=== PATIENT | female | born 1965 | race Caucasian/White ===

== ENCOUNTER 2018-07-17 17:11 | Inpatient (IN) | payer OTHER ==
[~2018-07-17] VITALS: Ht 165.1 cm; Wt 135.6 kg
[2018-07-17 17:11] VITALS: BP_SYST 136
[2018-07-17] MEDS ORDERED: ASPIRIN 81 MG TAB.CHEW PO ONE (17:45)
[2018-07-17 18:03] LABS: BASOPHILS # (AUTO) 0.1 K/uL (0.0-0.2); BASOPHILS % (AUTO) 0.9 % (0.0-2.0); EOSINOPHILS # (AUTO) 0.3 K/uL (0.0-0.4); HEMATOCRIT 42.6 % (36-48); HEMOGLOBIN 14.6 g/dL (12.0-16.0); LYMPHOCYTES # (AUTO) 3.6 K/uL (1.0-5.5); MEAN CORPUSCULAR HEMOGLOBIN 30 pg (27-31); MEAN CORPUSCULAR HGB CONC 34 % (32-36); MEAN CORPUSCULAR VOLUME 87 fL (79.0-98.0); MONOCYTES # (AUTO) 0.9 K/uL (0.0-1.0); MONOCYTES % (AUTO) 7.5 % (1.7-9.3); NEUTROPHILS # (AUTO) 6.5 K/uL (1.8-7.7); NEUTROPHILS % (AUTO) 56.6 % (40.0-70.0); PLATELET COUNT (AUTO) 252 K/uL (130-430); RED BLOOD CELL COUNT(AUTO) 4.87 MIL/uL (4.2-6.2); WHITE BLOOD COUNT (AUTO) 11.4 K/uL (4.8-10.8)
[2018-07-17 18:23] LABS: PROTHROMBIN TIME 9.9 SECS (9.5-12.5)
[2018-07-17 18:43] LABS: CALCIUM 9.4 mg/dL (8.4-11.0); CREATININE 0.76 mg/dL (0.55-1.30); POTASSIUM 3.2 mmol/L (3.5-5.1)
[2018-07-17 18:48] LABS: ALBUMIN 3.5 g/dL (3.4-4.8); TOTAL BILIRUBIN 0.3 mg/dL (0.0-1.0)
[2018-07-17] MEDS ORDERED: SIMV40TA2 PO (19:25)
[2018-07-17] MEDS ORDERED: BENA10TA2 PO (19:25)
[2018-07-17] MEDS ORDERED: GLU850 PO (19:25)
[2018-07-17] MEDS ORDERED: triamterene PO (19:25)
[2018-07-17 19:38] VITALS: BP_SYST 121
[2018-07-17 20:00] VITALS: BP_SYST 134
[2018-07-17] MEDS ORDERED: NITROGLYCERIN 0.4 MG TAB.SUBL SL PRN (21:30)
[2018-07-17] MEDS ORDERED: POTASSIUM CHLORIDE 20 MEQ TAB.PRT.SR PO SCH (22:00)
[2018-07-18 00:48] VITALS: BP_SYST 131
[2018-07-18 08:04] VITALS: BP_SYST 130
[2018-07-18 08:24] LABS: CALCIUM 9.4 mg/dL (8.4-11.0); CREATININE 0.65 mg/dL (0.55-1.30); POTASSIUM 4.3 mmol/L (3.5-5.1)
[2018-07-18 08:25] LABS: HEMATOCRIT 42.9 % (36-48); WHITE BLOOD COUNT (AUTO) 11.6 K/uL (4.8-10.8)
[2018-07-18 08:27] LABS: BASOPHILS # (AUTO) 0.2 K/uL (0.0-0.2); BASOPHILS % (AUTO) 1.9 % (0.0-2.0); EOSINOPHILS # (AUTO) 0.4 K/uL (0.0-0.4); EOSINOPHILS % (AUTO) 3.2 % (0.0-4.0); LYMPHOCYTES # (AUTO) 4.1 K/uL (1.0-5.5); LYMPHOCYTES % (AUTO) 35.1 % (20.5-51.5); MEAN CORPUSCULAR HEMOGLOBIN 31 pg (27-31); MEAN CORPUSCULAR HGB CONC 35 % (32-36); MEAN CORPUSCULAR VOLUME 88 fL (79.0-98.0); MONOCYTES # (AUTO) 0.9 K/uL (0.0-1.0); MONOCYTES % (AUTO) 7.8 % (1.7-9.3); PLATELET COUNT (AUTO) 228 K/uL (130-430); RED BLOOD CELL COUNT(AUTO) 4.85 MIL/uL (4.2-6.2); RED CELL DISTRIBUTION WIDTH 12.1 % (9.0-15.0)
[2018-07-18] MEDS: ASPIRIN 81 MG TAB.CHEW PO SCH (08:37)
[2018-07-18] MEDS: BENAZEPRIL HCL 10 MG TABLET (LOTENSIN) PO SCH (08:38)
[2018-07-18] MEDS: INSULIN REGULAR, HUMAN 100 UNITS/ML, 10 ML VIAL (novoLIN R) SUBCUT PRN ×3 (11:26→20:20)
[2018-07-18 12:00] VITALS: BP_SYST 109
[2018-07-18 16:00] VITALS: BP_SYST 112
[2018-07-18 20:00] VITALS: BP_SYST 127
[2018-07-18] MEDS ORDERED: ENOXAPARIN SODIUM 40 MG/0.4 ML SYRINGE SUBCUT SCH (21:00)
[2018-07-18] MEDS ORDERED: SIMVASTATIN 40 MG TABLET PO SCH (21:00)
[2018-07-19 05:20] VITALS: BP_SYST 112
[2018-07-19 08:04] VITALS: BP_SYST 101
[2018-07-19] MEDS: BENAZEPRIL HCL 10 MG TABLET (LOTENSIN) PO SCH (08:19)
[2018-07-19] MEDS: ASPIRIN 81 MG TAB.CHEW PO SCH (08:19)
[2018-07-19 09:52] VITALS: BP_SYST 101
[2018-07-19 11:07] VITALS: BP_SYST 132
== END 2018-07-19 12:40 | disposition home or self-care (01) | DRG 206 ==
LOC: SED 17:11 → STU 19:19
PROVIDERS: ADMIT Family Medicine; ATTEND Family Medicine
DX: M94.0 Chondrocostal junction syndrome [Tietze] (principal); E87.1 Hypo-osmolality and hyponatremia; Z68.42 Body mass index [BMI] 45.0-49.9, adult; R07.89 Other chest pain; I10 Essential (primary) hypertension; E78.5 Hyperlipidemia, unspecified; E11.9 Type 2 diabetes mellitus without complications; E66.01 Morbid (severe) obesity due to excess calories; F17.210 Nicotine dependence, cigarettes, uncomplicated; F41.9 Anxiety disorder, unspecified; J45.909 Unspecified asthma, uncomplicated; Z82.49 Family history of ischemic heart disease and other diseases of the circulatory system; Z83.3 Family history of diabetes mellitus; Z90.49 Acquired absence of other specified parts of digestive tract; Z91.018 Allergy to other foods; Z88.8 Allergy status to other drugs, medicaments and biological substances; Z79.899 Other long term (current) drug therapy; Z79.84 Long term (current) use of oral hypoglycemic drugs; Z84.89 Family history of other specified conditions
CPT/HCPCS: 36415; 71045; 80048; 80053; 80061; 82550-TC; 82962; 84484; 85025; 85610-TC; 85730-TC; 93005; 93306; 99285; J1650; J1815

== ENCOUNTER 2018-10-12 15:07 | Emergency (ER) | payer OTHER ==
[~2018-10-12] VITALS: Ht 165.1 cm; Wt 136.1 kg
[~2018-10-12 15:07] MED LIST: BENA10TA2 PO; GLU850 PO; SIMV40TA2 PO; triamterene PO
[2018-10-12 15:20] VITALS: BP_SYST 139
--- NOTE | 2018-10-12 16:09 | NUR ---
PATIENT SITTING UP ON BED. A&Ox4. RESPIRATIONS EVEN AND UNLABORED. NO SOB. NO CHEST PAIN. PT WITH C/O RIGHT ANKLE INJURY ON SUNDAY AND RIGHT SHOULDER PAIN SINCE SUNDAY. PER PT, SHE TRIPPED, FELL, AND LANDED ON HER RIGHT SIDE. DENIES OF ANY HEAD TRAUMA. RIGHT ANKLE NOTED WITH SWELLING AND PAIN = 6/10. ICE PACKS APPLIED TO THE RIGHT ANKLE FOR PAIN AND TOLERATING WELL. RIGHT LOWER EXTREMITY ELEVATED. RIGHT SHOULDER NOTED WITH GOOD ROM. NO DEFORMITY OBSERVED. PT IN GOOD CONDITION. PT ON CELL PHONE. NO ACUTE DISTRESS.
--- NOTE | 2018-10-12 16:12 | NUR ---
DR. DAN AT BEDSIDE AND EXAMINING PATIENT.
[2018-10-12] MEDS ORDERED: IBUPROFEN 800 MG TABLET PO ONE (16:30)
--- NOTE | 2018-10-12 16:35 | NUR ---
PATIENT OFFERED CRUTCHES BY DR. DAN BUT PATIENT REFUSED. PATIENT ABLE TO WALK WITH A STABLE GAIT.
[2018-10-12 16:37] VITALS: BP_SYST 116
--- NOTE | 2018-10-12 16:37 | NUR ---
Patient given written and verbal discharge instructions and verbalizes understanding. ER MD discussed with patient the results and treatment provided. Patient in stable condition. ID arm band removed. Rx of MOTRIN AND NORCO given. Patient educated on pain management and to follow up with PMD. Pain Scale 6/10; TOLERABLE VERBALIZED. Opportunity for questions provided and answered. Medication side effect fact sheet provided.
== END 2018-10-12 16:37 | disposition home or self-care (01) ==
LOC: SED 15:07
DX: S93.401A Sprain of unspecified ligament of right ankle, initial encounter (principal); E11.9 Type 2 diabetes mellitus without complications; I10 Essential (primary) hypertension; Z79.899 Other long term (current) drug therapy; X58.XXXA Exposure to other specified factors, initial encounter; Y93.89 Activity, other specified; Y92.89 Other specified places as the place of occurrence of the external cause; Y99.8 Other external cause status
CPT/HCPCS: 99283

== ENCOUNTER 2022-03-07 06:59 | Emergency (ER) | payer OTHER ==
[~2022-03-07] VITALS: Ht 165.1 cm; Wt 129.3 kg
[~2022-03-07 06:59] MED LIST changes: -BENA10TA2 PO; +BENA10TA73 PO
[2022-03-07 07:05] VITALS: BP_SYST 129
--- NOTE | 2022-03-07 07:05 | NUR ---
Patient ambulatory to bed 6 for evaluation and treatment
[2022-03-07] MEDS ORDERED: predniSONE 20 MG TABLET PO ONE (07:15)
[2022-03-07] MEDS ORDERED: IPRATROPIUM/ALBUTEROL SULFATE 3 ML AMPUL.NEB (DUONEB) INH ONE (07:15)
--- NOTE | 2022-03-07 07:44 | NUR ---
No report received on patient from rn night; however assumed care of patient at this time. Patient awake, alert and oriented x 3. Dry cough noted. Patient reports having asthma and feeling SOB upon arrival to ER overnight. States she also has allergies which have been bothering her for a few days. VSS (including SpO2) on property assessment monitor. Breathing treatment in progress. Awaiting further dispo.
[2022-03-07] MEDS ORDERED: HYDR120S7 PO ×3 (08:12→08:30)
[2022-03-07] MEDS ORDERED: PRED50TA PO ×3 (08:12→08:30)
--- NOTE | 2022-03-07 08:30 | NUR ---
Patient given written and verbal discharge instructions and verbalizes understanding. ER MD discussed with patient the results and treatment provided. Patient in stable condition. ID arm band removed. Rx of Hycodan and Prednisone given. Patient educated on pain management and to follow up with PMD. Pain scale 0/10. Opportunity for questions provided and answered. Medication side effect fact sheet provided.
[2022-03-07 08:32] VITALS: BP_SYST 129
== END 2022-03-07 08:32 | disposition home or self-care (01) ==
LOC: SED 06:59
DX: J45.901 Unspecified asthma with (acute) exacerbation (principal); Z91.040 Latex allergy status; E11.9 Type 2 diabetes mellitus without complications; I10 Essential (primary) hypertension
CPT/HCPCS: 71045; 94664; 99283; J7512

== ENCOUNTER 2022-03-11 19:13 | Emergency (ER) | payer OTHER ==
[~2022-03-11] VITALS: Ht 165.1 cm; Wt 128.8 kg
[~2022-03-11 19:13] MED LIST changes: +HYDR120S7 PO; +PRED50TA PO
[2022-03-11 19:15] VITALS: BP_SYST 118
--- NOTE | 2022-03-11 19:22 | NUR ---
Placed in room 2 . Placed on cardiac tech, blood pressure machine and pulse oximeter. To gown for exam. Side rails up. Report given to Saroj MARTIN([email or web address]).
--- NOTE | 2022-03-11 19:24 | NUR ---
Dr. Sterling present in room.
[2022-03-11] MEDS ORDERED: IPRATROPIUM BROM 0.5 MG/2.5 ML VIAL.NEB (ATROVENT) INH ONE (19:30)
[2022-03-11] MEDS ORDERED: ALBUTEROL SULFATE 0.083% 2.5 MG/3 ML VIAL.NEB INH ONE (19:30)
--- NOTE | 2022-03-11 19:49 | NUR ---
Pt still receiving breathing treatment at this time.
[2022-03-11 21:00] VITALS: BP_SYST 103
--- NOTE | 2022-03-11 21:05 | NUR ---
Patient given written and verbal discharge instructions and verbalizes understanding. ER MD discussed with patient the results and treatment provided. Patient in stable condition. ID arm band removed. IV catheter removed intact and dressing applied, no active bleeding. Patient educated on pain management and to follow up with PMD. Opportunity for questions provided and answered. Medication side effect fact sheet provided.
== END 2022-03-11 21:05 | disposition home or self-care (01) ==
LOC: SED 19:13
DX: J45.901 Unspecified asthma with (acute) exacerbation (principal); I10 Essential (primary) hypertension; E11.9 Type 2 diabetes mellitus without complications; Z79.84 Long term (current) use of oral hypoglycemic drugs; Z79.899 Other long term (current) drug therapy
CPT/HCPCS: 71045; 94640; 99283; J7613

== ENCOUNTER 2023-04-06 13:37 | Emergency (ER) | payer OTHER ==
[~2023-04-06] VITALS: Ht 177.8 cm; Wt 96.2 kg
[~2023-04-06 13:37] MED LIST changes: +SIMV-345 PO; -SIMV40TA2 PO
--- NOTE | 2023-04-06 13:45 | NUR ---
ER at bedside examining patient.
--- NOTE | 2023-04-06 13:54 | NUR ---
Patient to ER bed 08 to gown for evaluation. Side rails up.
[2023-04-06 13:57] VITALS: BP_SYST 132
[2023-04-06] MEDS ORDERED: HYDROmorphone 1 MG/ML INJ. CARTRIDGE IVP ONE (14:30)
[2023-04-06] MEDS ORDERED: NACL 0.9% 1,000 ML IV ONE (14:30)
--- NOTE | 2023-04-06 14:32 | NUR ---
Pt BIB self. C/O abscess to R vulva. Pt denies trauma to area. Pt states recurring abscess. pt states abscess tends to go away by self, but she noticed it growing even with hot compress. Pain 02/26. Pt denies N/V/D. afebrile. AAOX4. Speaking full complete sentences.
--- NOTE | 2023-04-06 14:35 | NUR ---
# 22 gauge angiocath placed to RIGHT UPPER FOREARM. Use of asceptic technique. Opsite placed over site. Blood return noted. Flushed with 10 cc of normal saline. No evidence of infiltration noted. Patient tolerated well.
--- NOTE | 2023-04-06 14:40 | NUR ---
Medicated per MD orders. IVF infusing with no s/s of infiltration at this time. Will cont to monitor
[2023-04-06 15:47] LABS: BILIRUBIN,URINE NEGATIVE (NEGATIVE); BLOOD, URINE NEGATIVE (NEGATIVE); CLARITY/URINE CLEAR (CLEAR); COLOR,URINE YELLOW (YELLOW); GLUCOSE,URINE 3+ (NEGATIVE); KETONES,URINE NEGATIVE (NEGATIVE); LEUKOCYTE ESTERASE ,URINE NEGATIVE (NEGATIVE); NITRITE, URINE NEGATIVE (NEGATIVE); PROTEIN URINE NEGATIVE (NEGATIVE); UROBILINOGEN,URINE 0.2 (0.2-1.0)
[2023-04-06] MEDS ORDERED: metroNIDAZOLE 500 mg/NS 100 ML IV ONE (16:15)
[2023-04-06] MEDS ORDERED: METR-154 PO (16:18)
[2023-04-06] MEDS ORDERED: NAPR-1172 PO (16:19)
--- NOTE | 2023-04-06 17:25 | NUR ---
Patient given written and verbal discharge instructions and verbalizes understanding. ER MD discussed with patient the results and treatment provided. Patient in stable condition. ID arm band removed. IV catheter removed intact and dressing applied, no active bleeding. Rx of ABX given. Patient educated on pain management and to follow up with PMD. Opportunity for questions provided and answered. Medication side effect fact sheet provided.
[2023-04-06 17:41] VITALS: BP_SYST 101
== END 2023-04-06 17:41 | disposition home or self-care (01) ==
LOC: SED 13:37
DX: N75.0 Cyst of Bartholin's gland (principal); N76.89 Other specified inflammation of vagina and vulva; E11.9 Type 2 diabetes mellitus without complications; I10 Essential (primary) hypertension; Z79.899 Other long term (current) drug therapy
CPT/HCPCS: 99284; 56405; 96365; 96361; 96375; 87040; 36415; 81003; J3490; J1170; J7030

== ENCOUNTER 2023-10-24 13:18 | Emergency (ER) | payer OTHER ==
[~2023-10-24] VITALS: Ht 165.1 cm; Wt 124.3 kg
[2023-10-24 13:18] VITALS: BP_SYST 119; PULSE 96; RESP 18; TEMP 98.2; O2SAT 100
[~2023-10-24 13:18] MED LIST changes: +METR-154 PO; +NAPR-1172 PO
[2023-10-24] MEDS ORDERED: KETOROLAC TROMETHAMINE 60 MG/2 ML VIAL IM ONE (15:30)
[2023-10-24] MEDS ORDERED: METH-634 PO (16:49)
[2023-10-24] MEDS ORDERED: TRAM50TA2 PO (16:52)
[2023-10-24 17:10] VITALS: BP_SYST 119; PULSE 96; RESP 18; TEMP 98.2; O2SAT 100
== END 2023-10-24 17:09 | disposition home or self-care (01) ==
LOC: SED 13:18
DX: M54.41 Lumbago with sciatica, right side (principal); I10 Essential (primary) hypertension; E11.9 Type 2 diabetes mellitus without complications; Z88.8 Allergy status to other drugs, medicaments and biological substances; Z79.899 Other long term (current) drug therapy
CPT/HCPCS: 99283; 72100; 96372; J1885

== ENCOUNTER 2024-01-03 10:58 | Emergency (ER) | payer OTHER ==
[~2024-01-03] VITALS: Ht 165.1 cm; Wt 122.5 kg
[~2024-01-03 10:58] MED LIST changes: +METH-634 PO; +TRAM50TA2 PO
[2024-01-03 11:00] VITALS: BP_SYST 114; PULSE 82; RESP 18; TEMP 97.5; O2SAT 98
[2024-01-03] MEDS ORDERED: KETOROLAC TROMETHAMINE 30 MG VIAL IM ONE (13:30)
[2024-01-03] MEDS ORDERED: NAPR-688 PO (13:37)
[2024-01-03] MEDS ORDERED: ACET-2634 PO (13:37)
[2024-01-03] MEDS ORDERED: TRAM50TA2 PO (13:37)
[2024-01-03] MEDS: HYDROcodone/ACETAMIN 10-325 MG TAB PO ONE (14:32)
== END 2024-01-03 14:32 | disposition home or self-care (01) ==
LOC: SED 10:58
DX: M25.511 Pain in right shoulder (principal); R07.81 Pleurodynia; M25.521 Pain in right elbow; Z88.8 Allergy status to other drugs, medicaments and biological substances; Z91.018 Allergy to other foods; Z79.899 Other long term (current) drug therapy; E11.9 Type 2 diabetes mellitus without complications; I10 Essential (primary) hypertension; W01.0XXA Fall on same level from slipping, tripping and stumbling without subsequent striking against object, initial encounter; Y93.89 Activity, other specified; Y92.89 Other specified places as the place of occurrence of the external cause; Y99.8 Other external cause status
CPT/HCPCS: 71100; 99284

== ENCOUNTER 2024-01-29 06:48 | Day surgery (SDC) | payer OTHER ==
[~2024-01-29] VITALS: Ht 165.1 cm; Wt 122.5 kg
[~2024-01-29 06:48] MED LIST changes: +ACET-2634 PO; +NAPR-688 PO
[2024-01-29] MEDS ORDERED: DIPHENHYDRAMINE INJ 50 MG/ML VIAL ONE (07:39)
[2024-01-29] MEDS ORDERED: methylPREDNISolone ACETATE 40 MG/ML ONE (10:00)
[2024-01-29] MEDS ORDERED: LIDOCAINE 2%, 20 ML MDV ONE (10:00)
[2024-01-29] MEDS ORDERED: NORMAL SALINE 10 ML VIAL ONE (10:00)
[2024-01-29] MEDS ORDERED: iopamidoL 50 ML VIAL IV ONE (10:00)
[2024-01-29] MEDS: MIDAZOLAM HCL 5 MG/5 ML VIAL ONE (10:07)
[2024-01-29] MEDS: fentaNYL CITRATE/PF 100 MCG/2 ML AMP ONE (10:09)
[2024-01-29 15:09] VITALS: O2SAT 100
[2024-01-29 16:47] VITALS: BP_SYST 102; PULSE 72; RESP 16
== END 2024-01-29 16:00 | disposition home or self-care (01) ==
LOC: SDS 06:48 → SMU 06:49 → SDS 16:00
PROVIDERS: ATTEND Internal Medicine
DX: M51.16 Intervertebral disc disorders with radiculopathy, lumbar region (principal); M47.816 Spondylosis without myelopathy or radiculopathy, lumbar region; M79.10 Myalgia, unspecified site; I10 Essential (primary) hypertension; E11.9 Type 2 diabetes mellitus without complications; E78.5 Hyperlipidemia, unspecified; Z90.49 Acquired absence of other specified parts of digestive tract; Z98.890 Other specified postprocedural states; Z79.84 Long term (current) use of oral hypoglycemic drugs; Z79.899 Other long term (current) drug therapy
CPT/HCPCS: 62323; 82948; J1030; J2250; J3010; Q9967; 76000; J1200; J2001